=== PATIENT | male | born 1955 | race Caucasian/White ===

== ENCOUNTER 2023-04-04 14:27 | Emergency (ER) | payer MEDICARE, MEDICAID, SELFPAY ==
--- NOTE | ~2023-04-04 | US_ITS ---
EXAMINATION: US VENOUS ULTRASOUND WITH DOPPLER LOWER EXTREMITY, BILATERAL CLINICAL INFORMATION: Pain COMPARISON: None available. TECHNIQUE: Ultrasound of the deep veins is performed from the hip to the calf with compression sonography and color and pulse Doppler assessment. Spectral analysis with color-flow imaging is performed. FINDINGS: RIGHT: There is normal venous compression and respiratory variation and augmented flow. The visualized common femoral vein, superficial femoral vein, profunda femoral vein, popliteal vein, and the trifurcation region shows no evidence of deep venous thrombosis. There is no significant popliteal fossa cyst. LEFT: There is normal venous compression and respiratory variation and augmented flow. The visualized common femoral vein, superficial femoral vein, profunda femoral vein, popliteal vein, and the trifurcation region shows no evidence of deep venous thrombosis. There is no significant popliteal fossa cyst. US/US venous duplex LE BI IMPRESSION: No DVT demonstrated in the bilateral lower extremity.
[2023-04-04 14:33] VITALS: BP 140/66; PULSE 94; RESP 18; TEMP 36.6; O2SAT 95; BMI 25.5
--- NOTE | 2023-04-04 14:34 | ED.GENADULT ---
HPI - General Adult General Chief complaint: Extremity Injury, Lower <Rob Balbuena - Last Filed: 04/04/23 14:38> Stated complaint: both feet discolored and numb <Rob Balbuena - Last Filed: 04/04/23 14:38> Time Seen by Provider: 04/04/23 19:30 <Rob Balbuena - Last Filed: 04/04/23 14:38> Source: patient <NINFA Tamez Last Filed: 04/05/23 01:36> Mode of arrival: ambulatory <NINFA Tamez - Last Filed: 04/05/23 01:36> Limitations: no limitations <NINFA Tamez Last Filed: 04/05/23 01:36> History of Present Illness HPI narrative: 67-year-old male with some developmental delay, history of seizure, and asthma presents to the ED for discoloration of legs for months with some numbness. senior care denies patient having any trauma, fever, chills, altered mental status, or any signs of chest pain /shortness of breath. Patient and skilled nursing denies any neuro stroke-like symptoms. <NINFA Tamez Last Filed: 04/05/23 01:36> Related Data Allergies/adverse reactions: Allergies Allergy/AdvReac Type Severity Reaction Status Date / Time No Known Allergies Allergy Verified 04/04/23 14:32 <Rob Balbuena - Last Filed: 04/04/23 14:38> Review of Systems Review of Systems: chronic bilateral lower extremity discolortion <NINFA Tamez Last Filed: 04/05/23 01:36> Yes all other systems are reviewed and are negative <NINFA Tamez Last Filed: 04/05/23 01:36> [facility] Social History Social History: Social History Advance Directives: No Advance Directives Information Provided: No <Rob Balbuena - Last Filed: 04/04/23 14:38> Physical Exam ED Vital Signs: Vital Signs - 24 hr 04/04/23 14:33 04/04/23 20:22 04/04/23 21:01 Temperature 98 F 98.2 F Pulse Rate 94 92 88 Respiratory Rate 18 12 19 Blood Pressure 140/66 H 149/84 H 136/85 Pulse Oximetry 95 94 92 Oxygen Delivery Method Room Air Room Air BMI result Body Mass Index 25.5 <Rob Balbuena - Last Filed: 04/04/23 14:38> Vital Signs - 24 hr 04/04/23 14:33 04/04/23 20:22 04/04/23 21:01 Temperature 98 F 98.2 F Pulse Rate 94 92 88 Respiratory Rate 18 12 19 Blood Pressure 140/66 H 149/84 H 136/85 Pulse Oximetry 95 94 92 Oxygen Delivery Method Room Air Room Air BMI result Body Mass Index 25.5 <NINFA Tamez Last Filed: 04/05/23 01:36> Const General: cooperative, healthy appearing, comfortable, no acute distress, well developed, alert, awake and Physically active <NINFA Tamez Last Filed: 04/05/23 01:36> Orientation/consciousness: oriented to person, oriented to place, oriented to time and patient oriented x3 <NINFA Tamez Last Filed: 04/05/23 01:36> HENMO Head: Yes normal to inspection, Yes No palpable skull fracture present, Yes normocephalic, Yes atraumatic and No abrasion <NINFA Tamez Last Filed: 04/05/23 01:36> Eyes General: appearance normal, both eyes and all related structures <NINFA Tamez Last Filed: 04/05/23 01:36> Neck Neck: Yes normal visual inspection, Yes full ROM, Yes no lymphadenopathy, Yes no meningeal signs, Yes trachea midline, Yes supple, No anterior neck swelling and No tender <NINFA Tamez Last Filed: 04/05/23 01:36> Chest Chest palpation & inspection: normal inspection of the chest and normal palpation of entire chest wall <NINFA Tamez Last Filed: 04/05/23 01:36> Resp Effort & Inspection: normal respiratory effort and able to speak in complete sentences <NINFA Tamez Last Filed: 04/05/23 01:36> Auscultation: clear to auscultation bilaterally <NINFA Tamez Last Filed: 04/05/23 01:36> Cardio Jugular venous distension: no JVD <NINFA Tamez Last Filed: 04/05/23 01:36> Heart sounds: S1 normal heart sound present and S2 normal heart sound present <NINFA Tamez Last Filed: 04/05/23 01:36> GI Inspection: Yes normal to inspection and No abdominal wall ecchymosis <NINFA Tamez Filed: 04/05/23 01:36> Palpation (GI): Soft to palpation, not firm, nontender, no guarding and not rigid <NINFA Tamez Last Filed: 04/05/23 01:36> General: No CVA tenderness and Yes no CVA tenderness <NINFA Tamez Last Filed: 04/05/23 01:36> Back/Spine/Pelvis Back: no CVA tenderness, No CVA tenderness and No back tenderness <NINFA Tamez Filed: 04/05/23 01:36> Skin General skin exam: no rashes or lesions noted and elasticity normal <NINFA Tamez Filed: 04/05/23 01:36> Neuro General: oriented to person, oriented to place, oriented to time, patient oriented x3, gait normal, tone normal, moves all extremities, Normal light touch and pain sensation, no meningeal signs, no focal motor deficits, CN's II-XI intact bilaterally and normal sensation to monofilament <NINFA Tamez Filed: 04/05/23 01:36> Extrem Other: Bilateral lower extremity negative for swelling, pitting edema, or calf tenderness. Bilateral lower extremity positive for venous stasis /PVD color changes. Negative for erythema. Negative for warmth or coolness. Bilateral lower extremity positive for pulses with Doppler. bilateral lower extremity sensation intact with sharp and dull object. <NINFA Tamez Last Filed: 04/05/23 01:36> Psych Appearance: grossly normal, well kempt and not disheveled <NINFA Tamez Last Filed: 04/05/23 01:36> Course Course Course Narrative: RME- 67 year old male with PMHx significant for congenital aphasia presents for evaluation of discoloration to both of his feet and lower legs. This has been going on for ?more than a few weeks but less than a few months. ? Denies pain, fevers, chills. Or exam both lower extremities are warm dry, 2+ PT pulses. Slight darkening to lower extremities, no erythema. The stroke no evidence of ischemia or cellulitis. Will order duplex venous ultrasound and get labs. <Rob Balbuena - Last Filed: 04/04/23 14:38> Reevaluation(s) Reevaluation #1: Chronic lower extremites dislcoration of his feet and lower legs with numbness. history physical exam indicate a more venous stasis versus peripheral vascular disease. Labs ultrasound of lower extremity normal. not suspecting emergent arterial occlusion. Patient in skilled nursing staff positive for erythema. Negative for crepitus, tenderness, mass, or swelling on palpation. Negative for neck swelling. explained patient will be to follow up with vascular surgeon for ankle brachial index and further evaluation for possible peripheral vascular disease /venous insufficiency. <NINFA Tamez - Last Filed: 04/05/23 01:36> Medical Decision Making Medical Decision Making [facility] Narrative: 67-year-old male presents to ED for bilateral lower extremity discoloration and numbness from months. Vascular neuromotor exam of lower extremity intact. Labs ultrasound normal. Lower extremities have venous insufficiency / stasis / Periphereal vascular disease color Changes. Patient and skilled nursing staff member informed patient follow-up with vascular surgeon. <NINFA Tamez - Last Filed: 04/05/23 01:36> Differential Diagnosis Differential Diagnoses: The differential diagnosis associated with the presentation includes (Cellulitis, venous stasis, DVT, arterial occlusion) <NINFA Tamez - Last Filed: 04/05/23 01:36> Admission/Observation Consideration of admission/observation: Escalation of care including admission/observation considered <NINFA Tamez - Last Filed: 04/05/23 01:36> Lab Data [facility] Lab Attestation statement: I reviewed the patient's lab results. <NINFA Tamze - Last Filed: 04/05/23 01:36> Result Diagrams: 04/04/23 14:40 04/04/23 14:40 <Rob Balbuena - Last Filed: 04/04/23 14:38> Labs: Lab Results 04/04/23 04/04/23 04/04/23 Range/Units 14:40 14:40 14:40 WBC 7.2 (4.8-10.8) X10*3/uL RBC 5.07 (4.60-5.80) X10*6/uL Hgb 15.9 (14.0-18.0) g/dl Hct 47.6 (42.0-52.0) % MCV 93.9 (80.0-98.0) fL MCH 31.4 (27.0-33.0) pg MCHC 33.4 (31.0-36.0) g/dl RDW 13.4 (11.0-16.0) % Plt Count 193 (160-400) X10*3/uL MPV 10.1 (9.4-12.4) fL Immature Gran % (Auto) 0.1 (0.0-0.4) % Neut % (Auto) 63.5 (45-73) % Lymph % (Auto) 22.8 (20-40) % [place] % (Auto) 9.0 (2-11) % Eos % (Auto) 3.6 (0-4) % Baso % (Auto) 1.0 (0-2) % Lymph # (Auto) 1.7 (1.2-4.9) X10*3/uL [place] # (Auto) 0.7 (0.1-1.2) X10*3/uL Eos # (Auto) 0.3 (0.0-0.4) X10*3/uL Baso # (Auto) 0.1 (0.0-0.2) X10*3/uL Abs Immat Gran (auto) 0.01 (0.00-0.03) X10*3/uL Absolute Neuts (auto) 4.6 (2.0-8.3) x10*3/uL Absolute Nucleated RBC 0.000 (0.0-0.012) X10*3/uL Nucleated RBC % (auto) 0.0 (0.0-0.2) /100WBC PT 11.6 (10.0-13.1) SEC INR 1.0 (0.9-1.1) APTT 31.8 (26.0-36.4) SEC Sodium 143 (135-145) mmol/L Potassium 4.3 (3.3-5.1) mmol/L Chloride 107 (96-108) mmol/L Carbon Dioxide 31 H (22-29) mmol/L Anion Gap 9 L (12-20) BUN 19 H (9-16) mg/dL Creatinine 1.15 (0.5-1.4) mg/dL Estim Creat Clear Calc 52.7 Estimated GFR > 60 Random Glucose 92 (60-115) mg/dL Calcium 9.2 (8.4-10.2) mg/dL Total Bilirubin 0.3 (0.0-1.0) mg/dL AST 18 (5-37) U/L ALT 20 (0-40) U/L Alkaline Phosphatase 107 (39-117) U/L Total Protein 7.1 (6.5-8.0) g/dL Albumin 4.2 (3.5-5.0) g/dL <Rob Balbuena - Last Filed: 04/04/23 14:38> Lab Results 04/04/23 04/04/23 04/04/23 Range/Units 14:40 14:40 14:40 WBC 7.2 (4.8-10.8) X10*3/uL RBC 5.07 (4.60-5.80) X10*6/uL Hgb 15.9 (14.0-18.0) g/dl Hct 47.6 (42.0-52.0) % MCV 93.9 (80.0-98.0) fL MCH 31.4 (27.0-33.0) pg MCHC 33.4 (31.0-36.0) g/dl RDW 13.4 (11.0-16.0) % Plt Count 193 (160-400) X10*3/uL MPV 10.1 (9.4-12.4) fL Immature Gran % (Auto) 0.1 (0.0-0.4) % Neut % (Auto) 63.5 (45-73) % Lymph % (Auto) 22.8 (20-40) % [place] % (Auto) 9.0 (2-11) % Eos % (Auto) 3.6 (0-4) % Baso % (Auto) 1.0 (0-2) % Lymph # (Auto) 1.7 (1.2-4.9) X10*3/uL [place] # (Auto) 0.7 (0.1-1.2) X10*3/uL Eos # (Auto) 0.3 (0.0-0.4) X10*3/uL Baso # (Auto) 0.1 (0.0-0.2) X10*3/uL Abs Immat Gran (auto) 0.01 (0.00-0.03) X10*3/uL Absolute Neuts (auto) 4.6 (2.0-8.3) x10*3/uL Absolute Nucleated RBC 0.000 (0.0-0.012) X10*3/uL Nucleated RBC % (auto) 0.0 (0.0-0.2) /100WBC PT 11.6 (10.0-13.1) SEC INR 1.0 (0.9-1.1) APTT 31.8 (26.0-36.4) SEC Sodium 143 (135-145) mmol/L Potassium 4.3 (3.3-5.1) mmol/L Chloride 107 (96-108) mmol/L Carbon Dioxide 31 H (22-29) mmol/L Anion Gap 9 L (12-20) BUN 19 H (9-16) mg/dL Creatinine 1.15 (0.5-1.4) mg/dL Estim Creat Clear Calc 52.7 Estimated GFR > 60 Random Glucose 92 (60-115) mg/dL Calcium 9.2 (8.4-10.2) mg/dL Total Bilirubin 0.3 (0.0-1.0) mg/dL AST 18 (5-37) U/L ALT 20 (0-40) U/L Alkaline Phosphatase 107 (39-117) U/L Total Protein 7.1 (6.5-8.0) g/dL Albumin 4.2 (3.5-5.0) g/dL <NINFA Tamez - Last Filed: 04/05/23 01:36> Independent Interpretation I performed an independent interpretation of an: Ultrasound <NINFA Tamez - Last Filed: 04/05/23 01:36> Radiology Impression Discussion of test interpretation with radiology: I have reviewed the radiologist's reading. <NINFA Tamez - Last Filed: 04/05/23 01:36> Discharge Plan Discharge Clinical Impression: Venous stasis dermatitis of both lower extremities, Peripheral vascular disease <Rob Balbuena - Last Filed: 04/04/23 14:38> Patient Disposition: Home, Self-Care <Rob Balbuena - Last Filed: 04/04/23 14:38> Instructions: Peripheral Vascular Disease (ED), Venous Insufficiency (DC) <Rob Balbuena - Last Filed: 04/04/23 14:38> Additional Instructions: Patient will need follow-up with vascular surgeon for ankle brachial index. Return to the ED immediately for coldness of extremities, warmth, complete numbness of lower extremity, redness, swelling, calf pain, chest pain, shortness of breath, weakness, dizziness, or any other concerning symptoms. <Rob Balbuena - Last Filed: 04/04/23 14:38> Referrals: Andi Connolly MD [Physician] - (Venous Stasis, Peripheral Vascular Disease) <Rob Balbuena - Last Filed: 04/04/23 14:38> Interventions: ED Discharge Assessment Last Done: 04/04/23 21:02 <Rob Balbuena - Last Filed: 04/04/23 14:38> Discharge Date/Time: 04/04/23 21:03 <Rob Balbuena - Last Filed: 04/04/23 14:38> Print Language: Guatemalan <Rob Balbuena - Last Filed: 04/04/23 14:38>
[2023-04-04 14:43] LABS: MANUAL DIFF FLAG NO
[2023-04-04 14:55] LABS: Basophils Absolute Auto 0.1 X10*3/uL (0.0-0.2); Eosinophils Absolute Auto 0.3 X10*3/uL (0.0-0.4); Eosinophils Percent Auto 3.6 % (0-4); Hematocrit 47.6 % (42.0-52.0); Hemoglobin 15.9 g/dl (14.0-18.0); Imm Gran Abs Auto 0.01 X10*3/uL (0.00-0.03); Imm Gran Pct Auto 0.1 % (0.0-0.4); Lymphocytes Absolute Auto 1.7 X10*3/uL (1.2-4.9); Lymphocytes Percent Auto 22.8 % (20-40); Mean Corpuscular HGB Conc 33.4 g/dl (31.0-36.0); Mean Corpuscular Hemoglobin 31.4 pg (27.0-33.0); Mean Corpuscular Volume 93.9 fL (80.0-98.0); Mean Platelet Volume 10.1 fL (9.4-12.4); Monocytes Absolute Auto 0.7 X10*3/uL (0.1-1.2); Neutrophils Absolute Auto 4.6 x10*3/uL (2.0-8.3); Neutrophils Percent Auto 63.5 % (45-73); Platelet Count 193 X10*3/uL (160-400); Red Blood Count 5.07 X10*6/uL (4.60-5.80); Red Cell Distribution Width 13.4 % (11.0-16.0); White Blood Count 7.2 X10*3/uL (4.8-10.8)
[2023-04-04 14:58] LABS: Prothrombin Time 11.6 SEC (10.0-13.1)
[2023-04-04 15:01] LABS: Partial Thromboplastin Time 31.8 SEC (26.0-36.4)
[2023-04-04 15:07] LABS: Alanine Aminotransferase 20 U/L (0-40); Albumin Level 4.2 g/dL (3.5-5.0); Alkaline Phosphatase 107 U/L (39-117); Anion Gap 9 (12-20); Aspartate Amino Transferase 18 U/L (5-37); Bilirubin Total 0.3 mg/dL (0.0-1.0); Blood Urea Nitrogen 19 mg/dL (9-16); Calcium 9.2 mg/dL (8.4-10.2); Carbon Dioxide 31 mmol/L (22-29); Chloride 107 mmol/L (96-108); Creatinine Clr Calc Pharmacy 52.7; Estimated Glomerular Filt Rate > 60; Glucose Random 92 mg/dL (60-115); Potassium 4.3 mmol/L (3.3-5.1); Sodium 143 mmol/L (135-145); Total Protein 7.1 g/dL (6.5-8.0)
--- NOTE | 2023-04-04 20:13 | PC.NURSE ---
Pt resting at the bedside in no apparent distress. Bilateral feet discoloration. No edema noted. + pedal pulse present. No pain at this time. MLP at bedside.
[2023-04-04 20:22] VITALS: BP 149/84; PULSE 92; RESP 12; TEMP 36.8; O2SAT 94
[2023-04-04 21:01] VITALS: BP 136/85; PULSE 88; RESP 19; O2SAT 92
== END 2023-04-04 21:03 | disposition home or self-care (01) ==
PROVIDERS: Physician Assistant; Emergency Provider Internal Medicine; PCP Internal Medicine
DX: I87.2 Venous insufficiency (chronic) (peripheral) (principal); R60.0 Localized edema; I73.9 Peripheral vascular disease, unspecified; Z79.899 Other long term (current) drug therapy
CPT/HCPCS: 36415; 80053; 85025; 85610; 85730; 93970; 99283; 99284